=== PATIENT | female | born 1985 ===

== ENCOUNTER 2019-03-05 14:18 | Inpatient (IN) ==
[2019-03-05] MEDS ORDERED: MEPERIDINE 50 MG/1 ML VIAL IV PRN (14:31)
[2019-03-05 15:10] LABS: Basophils % 0.5 % (0.0-0.8); Eosinophils # 0.1 10*3/uL (0.0-0.87); Hematocrit 35.5 VOL% (35.7-47.0); Hemoglobin 11.9 GM/DL (12.0-16.0); Immature Granulocytes Absolute 0.06 #; Lymphocytes % 34.4 % (21.3-54.2); Mean Corpuscular HGB Conc 33.5 GM/DL (32-36); Mean Corpuscular Volume 91.5 FL (87-102); Mean Platelet Volume 11.5 FL (9.6-12.0); Monocytes % 8.3 % (1.7-12.7); Neutrophils % 54.8 % (38.7-73.9); Platelet Count 189 T/CUMM (130-400); Red Blood Count 3.88 MC/CUMM (3.8-5.5); Red Cell Distribution Width 14.4 % (9.3-17.3); White Blood Count 5.8 T/CUMM (4-12)
[2019-03-05 15:23] LABS: Alanine Aminotransferase 42 U/L (13-56); Albumin 2.6 G/DL (3.4-5.0); Alkaline Phosphatase 258 U/L (45-117); Aspartate Amino Transferase 34 U/L (0-37); Bilirubin,Total < 0.39 MG/DL (0.2-1.0); Blood Urea Nitrogen 17 MG/DL (7-18); Calcium 8.9 MG/DL (8.5-10.1); Estimated Glom Filtration Rate 56 ML/MIN; Glucose 144 MG/DL (74-106); Osmolality,Calculated 285.3 MOS/KG (273-304); Total Protein 6.5 G/DL (6.4-8.3)
[2019-03-05] MEDS ORDERED: DINOPROSTONE VAG GEL 10 MG SYRINGE VAG ONE (15:34)
[2019-03-05] MEDS: BUTORPHANOL 2 MG/ML VIAL IV PRN (23:21)
[2019-03-05] MEDS: ONDANSETRON 4 MG/2 ML VIAL IV PRN (23:22)
[2019-03-06] MEDS ORDERED: OXYTOCIN/LR 20 UNIT/1,000 ML BAG IV SCH (02:00)
[2019-03-06] MEDS: LACTATED RINGERS 1,000 ML IV SCH ×3 (02:20→13:19)
[2019-03-06] MEDS ORDERED: PROMETHAZINE 25 MG/1 ML VIAL IM ONE (05:26)
[2019-03-06] MEDS ORDERED: NALOXONE 0.4 MG/ML VIAL IV PRN (05:26)
[2019-03-06] MEDS ORDERED: ePHEDrine 50 MG/ML AMP IV PRN (05:26)
[2019-03-06] MEDS ORDERED: ONDANSETRON 4 MG/2 ML VIAL IV ONE (05:26)
[2019-03-06] MEDS ORDERED: diphenhydrAMINE 50 MG/1 ML VIAL IV PRN ×2 (05:26)
[2019-03-06] MEDS ORDERED: hydrOXYzine HCL 25 MG/1 ML VIAL IM PRN (05:26)
[2019-03-06] MEDS ORDERED: LACTATED RINGERS 500 ML IV ONE (05:28)
[2019-03-06] MEDS ORDERED: LACTATED RINGERS 1,000 ML IV ONE (05:28)
[2019-03-06] MEDS ORDERED: FAMOTIDINE 20 MG/2 ML VIAL IV ONE (05:28)
[2019-03-06] MEDS ORDERED: CITRIC ACID/SODIUM CITRATE 30 ML UDCUP PO ONE (05:28)
[2019-03-06] MEDS ORDERED: LACTATED RINGERS 1,000 ML IV SCH ×2 (05:30)
[2019-03-06] MEDS ORDERED: fentaNYL 2 MCG/ROPIV 0.2% EPID 100 ML EPIDURAL SCH (05:30)
[2019-03-06] MEDS: BUTORPHANOL 2 MG/ML VIAL IV PRN (05:49)
[2019-03-06 09:28] LABS: Amorphous Crystals,Urine Few /HPF (Few); Apearance,Urine Slightly Hazy (Clear); Bilirubin,Urine Negative (Negative); Blood, Urine Small mg/dL (Negative); Glucose,Urine (UA) Negative (Negative); Ketones,Urine Negative (Negative); Mucus,Urine Occasional /LPF (Occasional); Nitrite,Urine Negative (Negative); Protein,Urine 100 MG/DL; RBC,Urine 15 /HPF (0-4); Squamous Epithelial Cell,Urine Occasional /HPF (0-10); Urine Color Yellow (Yellow); Urine Specific Gravity 1.018 (1.001-1.035); Urine Urobilinogen < 2.0 EU/DL (0.2-1.0); WBC,Urine 1 /HPF (0-6)
[2019-03-06] MEDS: ONDANSETRON 4 MG/2 ML VIAL IV PRN (13:29)
[2019-03-06] MEDS ORDERED: ceFAZolin 2,000 MG in PREMIX 1 EACH IV ONE (18:25)
[2019-03-06] MEDS ORDERED: OXYTOCIN/LR 30 UNIT/1,000 ML BAG IV ONE (18:26)
[2019-03-06] MEDS ORDERED: OXYTOCIN 10 UNIT/ML VIAL IM ONE (18:26)
[2019-03-06] MEDS ORDERED: OXYTOCIN/LR 20 UNIT/1,000 ML BAG IV ONE ×2 (18:44→23:52)
[2019-03-06] MEDS ORDERED: miSOPROStoL 200 MCG TABLET ONE (18:44)
[2019-03-06] MEDS ORDERED: CARBOPROST TROMETHAMINE 250 MCG/ML AMP IM ONE (18:44)
[2019-03-06] MEDS ORDERED: TRANEXAMIC ACID 1,000 MG/10 ML VIAL ONE (18:44)
[2019-03-06] MEDS ORDERED: METHYLERGONOVINE 0.2 MG/1 ML AMP ONE (18:44)
[2019-03-06] MEDS ORDERED: LIDOCAINE MPF 2% /EPI 20 ML VIAL ONE (19:39)
[2019-03-06] MEDS: HYDROmorphone 2 MG/1 ML VIAL IV PRN ×2 (21:06→23:17)
[2019-03-06] MEDS ORDERED: METOCLOPRAMIDE 10 MG TABLET PO SCH (23:45)
[2019-03-07] MEDS: IBUPROFEN 800 MG TABLET PO PRN ×3 (00:58→22:55)
[2019-03-07] MEDS ORDERED: ceFAZolin 1,000 MG in SYRINGE 1 EACH IV SCH (03:30)
[2019-03-07 05:48] LABS: Basophils # 0.1 10*3/uL (0.0-0.2); Basophils % 0.3 % (0.0-0.8); Eosinophils % 0.1 % (0.00-10.9); Hematocrit 28.2 VOL% (35.7-47.0); Hemoglobin 9.1 GM/DL (12.0-16.0); Immature Granulocytes % 1.8 %; Immature Granulocytes Absolute 0.34 #; Lymphocytes # 3.1 10*3/uL (1.4-4.0); Lymphocytes % 16.1 % (21.3-54.2); Mean Corpuscular HGB Conc 32.3 GM/DL (32-36); Mean Corpuscular Volume 94.9 FL (87-102); Mean Platelet Volume 11.7 FL (9.6-12.0); Monocytes % 6.1 % (1.7-12.7); Neutrophils % 75.6 % (38.7-73.9); Platelet Count 152 T/CUMM (130-400); Red Blood Count 2.97 MC/CUMM (3.8-5.5); Red Cell Distribution Width 14.9 % (9.3-17.3)
[2019-03-07] MEDS: DOCUSATE SODIUM 100 MG CAPSULE PO SCH ×2 (08:15→21:28)
[2019-03-07] MEDS: METOCLOPRAMIDE 10 MG TABLET PO SCH (08:16)
[2019-03-07] MEDS: MAGNESIUM HYDROXIDE SUSP 30 ML UDCUP PO PRN (10:03)
[2019-03-08] MEDS: METOCLOPRAMIDE 10 MG TABLET PO SCH ×2 (01:02→09:36)
[2019-03-08 07:39] VITALS: BP 117/70
[2019-03-08] MEDS ORDERED: FERROUS SULFATE 325 MG TABLET PO SCH (09:00)
[2019-03-08] MEDS: DOCUSATE SODIUM 100 MG CAPSULE PO SCH (09:34)
[2019-03-08] MEDS: MAGNESIUM HYDROXIDE SUSP 30 ML UDCUP PO PRN (09:36)
== END 2019-03-08 12:30 | disposition home or self-care (01) | DRG 788 ==
LOC: N.LDOUT 14:18 → N.LD 14:19 → N.OB 03-06 23:34
PROVIDERS: ADMIT Obstetrics & Gynecology; ATTEND Obstetrics & Gynecology
PROC: LDCSECT (ICD-10-PCS; 2019-03-06 19:00)